=== PATIENT | male | born 1970 | race Caucasian/White ===

== ENCOUNTER 2016-07-31 02:56 | Emergency (ER) | payer OTHER ==
[~2016-07-31] VITALS: Ht 172.7 cm; Wt 108.1 kg
[~2016-07-31 02:56] MED LIST: ALBU8.5H6 IH; AZIT250T81 PO; DIPH25TA65 PO; LORA10TA76 PO; METH4TAB27 PO
[2016-07-31] MEDS ORDERED: ALBUTEROL 0.083% NEB SOLUTION 2.5 MG/3 ML VIAL INH ONE ×2 (03:03→03:20)
[2016-07-31] MEDS ORDERED: predniSONE 20 MG (DELTASONE) TABLET PO ONE (03:20)
[2016-07-31] MEDS ORDERED: ED- ALBUTEROL HFA (VENTOLIN HFA) 8 GM INHALER IH ONE (03:50)
[2016-07-31] MEDS ORDERED: ALBU8.5H2 IH (04:02)
[2016-07-31] MEDS ORDERED: DOXY-182 PO ×2 (04:02→04:07)
[2016-07-31] MEDS ORDERED: PRED20TA PO (04:02)
[2016-07-31 04:26] VITALS: BP 132/90
== END 2016-07-31 04:13 | disposition home or self-care (01) ==
LOC: ED 02:58
DX: J45.901 Unspecified asthma with (acute) exacerbation (principal)
CPT/HCPCS: 94640; 99282; 99283